=== PATIENT | male | born 1955 | race Caucasian/White ===

== ENCOUNTER 2018-10-02 06:24 | Day surgery (SDC) | payer BC ==
--- NOTE | 2018-09-28 03:21 | HP ---
PREOPERATIVE HISTORY AND PHYSICAL: DATE OF ADMISSION/SURGERY: 10/02/18 DATE OF OFFICE VISIT/ENCOUNTER: 09/02/18 ATTENDING SURGEON: Vangie Ventura MD * (DICTATED BY STEPH NEWSOME) PROCEDURE: Left middle finger, ring finger trigger finger releases. CHIEF COMPLAINT: Triggering, left middle and ring fingers. HISTORY OF PRESENT ILLNESS: This is a 63-year-old male who has had triggering and an occasional locking in the left middle finger and ring finger for a couple of years now. He has received cortisone injections over the years for both of these fingers and the cortisone is helpful. Unfortunately, the symptoms ultimately returned and he is now interested in surgical intervention for these problems. PAST MEDICAL HISTORY: 1. Gout. 2. Hypertension. PAST SURGICAL HISTORY: 1. Left knee surgery secondary to gout. 2. Tonsillectomy. CURRENT MEDICATIONS: 1. Allopurinol 300 mg daily. 2. Losartan potassium/hydrochlorothiazide 1 tab daily. 3. Metoprolol succinate ER 200 mg 1 tab daily. ALLERGIES: No known drug allergies. FAMILY MEDICAL HISTORY: Diabetes. 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 He is a former smoker. He quit in 1993. Prior to that, he smoked a pack and a half per day for about 15 years. He denies recreational drug use. He drinks alcohol on regular occasion. REVIEW OF SYSTEMS: Negative for general, cephalic, cardiovascular, respiratory , GI, , other musculoskeletal, integumentary, endocrine, neurologic, and hematologic symptoms. Infectious disease is negative for history of MRSA, hepatitis C, HIV. PHYSICAL EXAMINATION GENERAL: Well-developed, well-nourished, 63-year-old male, in no acute distress. VITAL SIGNS: Height 5 feet 11 inches, weight 215 pounds, pulse rate 64, blood pressure 132/68. HEENT: Normocephalic, atraumatic. Pupils are equal, round, and reactive to light and accommodation. Extraocular movements are intact. Throat is clear. NECK: Supple. No palpable lymph nodes. PULMONARY: Lungs are clear to auscultation bilaterally. No wheezes, rales, or rhonchi. CARDIOVASCULAR: Regular rate and rhythm. S1, S2. No murmurs, rubs or gallops. No edema. ABDOMEN: Positive bowel sounds, soft, nontender. NEUROLOGIC: Alert and oriented x3. Cranial nerves II through XII are intact. Sensation is intact to light touch. MUSCULOSKELETAL: On exam of his left hand, there is no visible swelling. He has tenderness at the A1 pulleys of both the middle and ring fingers and clicking with motion. Some discomfort of fingers as he tries to fully flex them. IMPRESSION: Left middle and ring finger trigger fingers. PLAN: The patient is scheduled to undergo left middle finger and ring finger trigger finger release with Dr. Ventura on 10/02/18. He will return to the office 10 days postop for followup and suture removal. A prescription for tramadol was e- scribed to the patient's pharmacy for postoperative pain management. STEPH NEWSOME [id number]/[facility] #: [id number] MTDD
[~2018-10-02 06:24] MED LIST: Buffered Lidocaine 0.9% SYRIN* 5 ML/SYR SYRINGE INTRADERM ONE; Lactated Ringers 1000 ML Bag* 1,000 ML IV SCH
[2018-10-02] MEDS ORDERED: Lidocaine 1% INJ* 10 MG/ML 30 ML SDV ONE (07:02)
[2018-10-02] MEDS ORDERED: fentaNYL* 50 MCG/ML 2 ML VIAL (100 MCG VIAL) ONE (07:16)
[2018-10-02] MEDS ORDERED: Midazolam* 1 MG/ML 2 ML VIAL (2 MG) ONE (07:16)
[2018-10-02] MEDS ORDERED: Lidocaine 2% PF * 5 ML VIAL ONE (07:36)
[2018-10-02] MEDS ORDERED: Ketorolac INJ* 30 MG/ML 1 ML VIAL ONE (07:36)
[2018-10-02] MEDS ORDERED: Propofol* 10 MG/ML 20 ML BTL ONE (07:36)
[2018-10-02] MEDS ORDERED: Ondansetron INJ* 2 MG/ML VIAL IV PRN (07:46)
[2018-10-02] MEDS ORDERED: Acetaminophen TAB* 325 MG PO PRN (07:46)
[2018-10-02] MEDS ORDERED: Naloxone* 0.4 MG/ML 1 ML VIAL IV PRN (07:46)
[2018-10-02 08:24] VITALS: BP 118/68
--- NOTE | 2018-10-02 20:30 | OP ---
DATE OF OPERATION: 10/02/18 [facility] DATE OF : 59 SURGEON: Dr. Ventura. NURSERY ATTENDANT: STEPH Fowler ANESTHESIA: Local MAC. PRE-OP DIAGNOSIS: Trigger fingers, left long and ring finger. POST-OP DIAGNOSIS: Trigger fingers, left long and ring finger. OPERATIVE PROCEDURE: Trigger finger release, left long and ring finger. ESTIMATED BLOOD LOSS: Zero. TOURNIQUET TIME: Approximately 15 minutes. INDICATIONS: Tariq is a 63-year-old man with triggering and locking of his left ring and middle finger for many months. He has had several cortisone injections. He has now failed conservative treatment, presents for trigger finger release of the left long and ring finger. DESCRIPTION OF PROCEDURE: The patient was brought to the operating room and was given a sedation anesthetic and a local infiltration of 10 cc of 1% plain lidocaine in the palm of his left hand. The skin of his left hand and forearm was prepped and draped in the usual sterile fashion. The hand and forearm were exsanguinated and tourniquet elevated to 250 mmHg. A transverse incision was made centered over the A1 pulleys of the long and ring finger of the left hand. We dissected bluntly through the subcutaneous tissue down to the A1 pulleys. These were then incised longitudinally completely releasing the tendons. The middle finger flexor tendon had a lot of abrasion on it but was intact. There was minimal abrasion on the ring finger flexor tendon. The wound was irrigated and the skin edges were reapproximated with 4-0 nylon suture. The wound was dressed with Xeroform, 4x4, Webril, and an Fazal wrap. The patient tolerated the procedure well and was brought to the recovery room in good condition. [id number]/[facility] #: [id number] [facility] FACILITYFederico
== END 2018-10-02 08:26 | disposition home or self-care (01) ==
LOC: OREAST 06:24
PROVIDERS: ATTEND Orthopaedic Surgery
DX: M65.332 Trigger finger, left middle finger (principal); M65.342 Trigger finger, left ring finger; M10.9 Gout, unspecified; I10 Essential (primary) hypertension; Z87.891 Personal history of nicotine dependence
CPT/HCPCS: J1885; J2250; J2704; J3010